=== PATIENT | male | born 1930 | race Caucasian/White ===

== ENCOUNTER 2017-04-04 16:02 | Inpatient (IN) | payer MEDICARE ==
[~2017-04-04] VITALS: Ht 162.6 cm; Wt 56.0 kg
[~2017-04-04 16:02] MED LIST: ASPIRIN CHEW81 MG PO; FAMOTIDINE20 MG PO; FERROUS SULFAT324 MG PO; FUROSEMIDE40 MG PO; GLIMEPIRIDE2 MG PO; KEFLEX500 MG PO; LANTUS 3ML100 UNITS/ SC; MAGNESIUM OXID400 MG PO; PLAVIX75 MG PO; POTASSIUM CHLO10 ME1 PO; ZOCOR20 MG PO
--- OUTSIDE RECORDS SUMMARY | 2017-04-04 16:05 | XMS REPORT ---
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 Allergies, Adverse Reactions, Alerts This patient has no known allergies or adverse reactions. Medications This patient has no known medications. Results Test Description Test Time Test Comments Text Results Atomic Results Result Comments CHEST SINGLE (PORTABLE) [place] [address] Patient Name: LIAT TRAN MR #: [id number] : 1930 Age/Sex: 86/M Req #: [id number] [facility] Physician: MELISSA ARENAS MD Ordered by: MELISSA ARENAS MD Report #: [id number] Location: [facility] Room/Bed: [place] [address] Procedure: [id number] DX/CHEST SINGLE (PORTABLE) Exam Date: 01/19/17 Exam Time: 0500 REPORT STATUS: Signed EXAM: CHEST SINGLE (PORTABLE), AP 1 view DATE: 01/19/2017 6:00 AM Time stamp on exam: 0520 hours INDICATION: Shortness of breath, pneumonia, pleural effusions COMPARISON: AP view of the chest January 16, 2017 at 1850 hours FINDINGS: LINES/TUBES: None LUNGS: Bibasilar atelectasis. PLEURA: Bilateral pleural effusions. HEART AND MEDIASTINUM: Cardiomegaly , mediastinal clips and median sternotomy wires. BONES AND SOFT TISSUES: No acute findings. IMPRESSION: No interval change. Next Cardiomegaly, vascular congestion and bilateral pleural effusions. Signed by: Dr. Britta Patterson M.D. on 01/19/2017 6:47 AM Dictated By: BRITTA PATTERSON MD 6 Transcribed By: JAKE on 01/19/17646 COPY TO: MELISSA ARENAS MD CHEST SINGLE (PORTABLE) [place] [address] Patient Name: LIAT TRAN MR #: [id number] : 1930 Age/Sex: 86/M Req #: [id number] Adm Physician: Ordered by: MARIO SMITH Report #: [id number] Location: ER Room/Bed: _ Procedure: [id number] DX/CHEST SINGLE (PORTABLE) Exam Date: 01/16/17 Exam Time: 1904 REPORT STATUS: Signed EXAMINATION : CHEST SINGLE (PORTABLE) 01/16/2017 6:53 PM COMPARISON: None INDICATION: Pneumonia DISCUSSION: LINES: None. LUNGS: Low lung volumes with bibasilar atelectasis. There is pulmonary vascular congestion. PLEURA: Bilateral pleural effusions, right greater than left. HEART AND MEDIASTINUM: The heart is mildly enlarged. There are extensive postsurgical changes to the mediastinum. BONES AND SOFT TISSUES: Median sternotomy wires are intact.. The soft tissues are normal. IMPRESSION: Cardiomegaly with pulmonary vascular congestion and bilateral pleural effusions. Vaibhav Fuentes MD Signed by: Dr. Vaibhav Fuentes M.D. on 01/16/2017 7:21 PM Dictated By: VAIBHAV FUENTES MD 20 Transcribed By: JAKE on 01/16/171920 COPY TO: MARIO SMITH
--- OUTSIDE RECORDS SUMMARY | 2017-04-04 16:05 | XMS REPORT | Clinical Summary ---
Author Author [facility] Organization [facility] Address Unknown Phone Unavailable Care Team Providers Care Business Intelligence Consultant Name Role Phone Asked, Pcp PCP Unavailable Allergies No Known Allergies Current Medications Prescription Sig. Disp. Refills Start End Date Status Date furosemide (LASIX) 20 mg Take by mouth. Unknown Active tablet dose insulin ASPART (NovoLOG) Inject under the skin 3 Active 100 unit/mL injection (three) times a day before meals. Unknown dose atorvastatin (LIPITOR) 10 Take 10 mg by mouth Active MG tablet nightly. cephalexin (KEFLEX) 500 Take 500 mg by mouth 3 Active MG capsule (three) times a day. famotidine (PEPCID) 20 MG Take 20 mg by mouth Active tablet daily. ferrous sulfate 325 (65 Take 325 mg by mouth Active FE) MG tablet daily with breakfast. glipiZIDE (GLUCOTROL) 5 Take 7.5 mg by mouth Active MG tablet daily before breakfast. insulin lispro (HumaLOG) Inject under the skin 3 Active 100 unit/mL injection (three) times a day before meals. Low dose sliding scale lidocaine (LIDODERM) 5 % Place 1 patch on the skin Active daily. Remove & Discard patch within 12 hours or as directed by magnesium oxide (MAG-OX) Take 800 mg by mouth 2 Active 400 mg tablet (two) times a day. tamsulosin (FLOMAX) 0.4 Take 0.4 mg by mouth Active mg capsule,extended daily. release 24hr acetaminophen (TYLENOL) Take 650 mg by mouth Active 325 MG tablet every 6 (six) hours as needed for fever. HEPARIN SODIUM,PORCINE Infuse 5,000 Units into a 03/01/19 Discontin (HEPARIN, PORCINE,) 1,000 venous catheter every 8 18 ued unit/mL injection (eight) hours. dexamethasone (DECADRON) Take 1 tablet (4 mg 14 tablet 0 03/01/19 4 MG tablet total) by mouth 2 (two) 18 18 times a day with meals for 7 days. Active Problems Problem Noted Date Myelopathy 02/27/2017 Debility 02/22/2017 Encounters Date Type Specialty Care Team Description 03/03/2017 Patient Quality Azael Rubio, PharmD Outreach 02/27/2017 [facility] General Internal Medicine Maty Dumont Myelopathy (Primary Dx) - Encounter MD Riley 03/01/2017 Jonathan Hobbs MD Tang, Hsiao Chiang, MD 02/27/2017 Procedure Pass General Internal Medicine 02/24/2017 Social Work Rehabilitation Marita Winslow 02/22/2017 [facility] Rehabilitation Julio Vivar MD - Encounter 02/27/2017 after 04/03/2016 Social History Tobacco Use Types Packs/Day Years Used Date Never Smoker Smokeless Tobacco: Never Used Alcohol Use Drinks/Week oz/Week Comments No Sex Assigned at Date Recorded Not on file Last Filed Vital Signs Vital Sign Reading Time Taken Blood Pressure 129/59 03/01/2017 12:57 PM [employer] Pulse 98 03/01/2017 12:57 PM [employer] Temperature 36.5 C (97.7 F) 03/01/2017 12:57 PM [employer] Respiratory Rate 16 03/01/2017 12:57 PM [employer] Oxygen Saturation 100% 03/01/2017 12:57 PM [employer] Inhaled Oxygen - - Concentration Weight 68 kg (150 lb) 02/27/2017 12:44 PM [employer] Height 162.6 cm (5' 4") 02/27/2017 5:46 PM [employer] Body Mass Index 25.75 02/27/2017 12:44 PM [employer] Plan of Treatment Health Maintenance Due Date Last Done Comments ZOSTER VACCINE 1988 PNEUMOCOCCAL 1993 POLYSACCHARIDE VACCINE AGE 65 AND OVER PNEUMOCOCCAL-13 1993 INFLUENZA VACCINE 09/13/2016 Results * POC glucose (03/01/2017 12:02 PM) Only the most recent of 31 results within the time period is included. Component Value Ref Range POC glucose 272 (H) 65 - 100 mg/dL Comment: Meter ID: [id number] Pulverizer Feeder: Brendan Foote Specimen Performing Laboratory [facility] [address] [place] [address] * Hemoglobin A1c (03/01/2017 6:15 AM) Component Value Ref Range Hemoglobin A1C 7.0 (H) 4.0 - 6.0 % Comment: Less than 6% - Goal of therapy for Type II Diabetes Less than 7%- Goal of therapy for Type I Diabetes Less than 8%- Acceptable control for Type I or Type II Diabetes Greater than 8%- Unacceptable control; action indicated. (A [id number]) Specimen Performing Laboratory Blood [facility] [address] [place] [address] * FL Modified Barium Swallow (02/28/2017 11:19 AM) Specimen Performing Laboratory [facility] [address] [place] [address] Narrative PROCEDURE:FL MODIFIED BARIUM SWALLOW CLINICAL HISTORY:swallow test COMPARISON:None. TECHNIQUE: Procedure was performed in conjunction with the speech therapist. The patient was given thin barium, nectar, honey, puree, and cracker coated barium consistencies orally. A total kV of 66, mA of 2.4, and fluoroscopic time of 1.2 minutes was utilized for this procedure. The DAP (dose absorbed product) is: 0.32mGy-cm^2. The total number of fluoroscopic spot images: A single image of the neck in the lateral projection. FINDINGS: The patient demonstrated normal oral to pharyngeal transit. Hernandez, nonsilent laryngeal penetration and aspiration was encountered with thin liquids. No laryngeal penetration or aspiration was encountered with the remaining oral boluses applied. No vallecular pooling is seen. IMPRESSION: Abnormal study. High-Risk of nonsilent aspiration with thin liquids. [id number] . Procedure Note Interface, Radiology Results Incoming - 02/28/2017 11:34 AM [employer] PROCEDURE: FL MODIFIED BARIUM SWALLOW CLINICAL HISTORY: swallow test COMPARISON: None. TECHNIQUE: Procedure was performed in conjunction with the speech therapist. The patient was given thin barium, nectar, honey, puree, and cracker coated barium consistencies orally. A total kV of 66, mA of 2.4, and fluoroscopic time of 1.2 minutes was utilized for this procedure. The DAP (dose absorbed product) is: 0.32 mGy-cm^2. The total number of fluoroscopic spot images: A single image of the neck in the lateral projection. FINDINGS: The patient demonstrated normal oral to pharyngeal transit. Hernandez, nonsilent laryngeal penetration and aspiration was encountered with thin liquids. No laryngeal penetration or aspiration was encountered with the remaining oral boluses applied. No vallecular pooling is seen. IMPRESSION: Abnormal study. High-Risk of nonsilent aspiration with thin liquids. [id number] . * Urinalysis screen and microscopy, with reflex to culture (02/27/2017 5:24 PM) Component Value Ref Range Specimen site Clean catch Color, UA Yellow Appearance, UA Clear Specific gravity, UA 1.011 1.001 - 1.035 pH, UA 7.0 5.0 - 8.5 Protein, UA 2+ (A) Negative Glucose, UA 2+ (A) Negative Ketones, UA Trace (A) Negative Bilirubin, UA Negative Negative Blood, UA Negative Negative Nitrite, UA Negative Negative Urobilinogen, UA Negative <2.0 Leukocyte esterase, UA Negative Negative WBC, UA 1 0 - 1 /HPF RBC, UA 2 0 - 1 /HPF Bacteria, UA None seen None seen Yeast, UA None seen Yeast with pseudohyphae, None seen UA Hyaline casts, UA 4 /LPF Specimen Performing Laboratory Urine [facility] [address] [place] [address] * Urine culture (02/27/2017 5:24 PM) Component Value Ref Range Urine culture SEE COMMENTComment: Bacteriuria screen negative. Specimen Performing Laboratory [facility] [place] [address] [place] [address] * MRI Thoracic Spine Wo Contrast (02/27/2017 5:03 PM) Specimen Performing Laboratory [facility] [address] [place] [address] Narrative EXAMINATION:MRI THORACIC SPINE WO CONTRAST COMPARISON:Thoracic spine CT same day. CLINICAL HISTORY:myelopathy FINDINGS: As noted on the CT others a horizontal fracture through T10 extending into the posterior elements. This also fracture extending into the anterior right aspect of T9. There is surrounding abnormal soft tissue possibly representing hematoma. As noted on the CT there is a bone fragment posteriorly at T10 which in combination with slight retropulsion results in spinal stenosis and cord compression. There is associated increased signal intensity within the cord on the T2 and inversion recovery weighted sequences compatible with edema and/or gliosis. Also as noted on the CT is ankylosing spondylitis. There is a large loculated right pleural effusion. IMPRESSION: Ankylosing spondylitis with a complex horizontal fracture through T10 including the posterior elements. A bone fragment posteriorly results in fairly severe spinal stenosis and associated cord compression. Abnormal signal intensity within the cord compatible with gliosis and/or edema. [facility]-[id number] Procedure Note Interface, Radiology Results Incoming 02/27/2017 5:18 PM [employer] EXAMINATION: MRI THORACIC SPINE WO CONTRAST COMPARISON: Thoracic spine CT same day. CLINICAL HISTORY: myelopathy FINDINGS: As noted on the CT others a horizontal fracture through T10 extending into the posterior elements. This also fracture extending into the anterior right aspect of T9. There is surrounding abnormal soft tissue possibly representing hematoma. As noted on the CT there is a bone fragment posteriorly at T10 which in combination with slight retropulsion results in spinal stenosis and cord compression. There is associated increased signal intensity within the cord on the T2 and inversion recovery weighted sequences compatible with edema and/or gliosis. Also as noted on the CT is ankylosing spondylitis. There is a large loculated right pleural effusion. IMPRESSION: Ankylosing spondylitis with a complex horizontal fracture through T10 including the posterior elements. A bone fragment posteriorly results in fairly severe spinal stenosis and associated cord compression. Abnormal signal intensity within the cord compatible with gliosis and/or edema. [facility]-[id number] * XR Chest 1 Vw Portable (02/27/2017 3:17 PM) Specimen Performing Laboratory [address] [address] Narrative EXAMINATION:XR CHEST 1 VW PORTABLE CLINICAL HISTORY:Cough COMPARISON:None IMPRESSION: Right greater than left patchy basilar infiltrates may be pneumonia. Pulmonary edema is also a consideration. Recommend radiographic follow-up. Small right pleural effusion. The heart is enlarged with diffuse congestive changes. There is evidence of prior CABG. [facility]-[id number] Procedure Note Interface, Radiology Results Incoming - 02/27/2017 3:44 PM [employer] EXAMINATION: XR CHEST 1 VW PORTABLE CLINICAL HISTORY: Cough COMPARISON: None IMPRESSION: Right greater than left patchy basilar infiltrates may be pneumonia. Pulmonary edema is also a consideration. Recommend radiographic follow-up. Small right pleural effusion. The heart is enlarged with diffuse congestive changes. There is evidence of prior CABG. [facility]-[id number] * CT Thoracic Spine Wo Contrast (02/27/2017 2:23 PM) Specimen Performing Laboratory [facility] [address] [place] [address] Narrative EXAMINATION:CT THORACIC SPINE WO CONTRAST COMPARISON:None CLINICAL HISTORY:fall TECHNIQUE: Coronal and sagittal reformations were accomplished. Up to date CT equipment and radiation dose reduction techniques were utilized. FINDINGS: The patient has ankylosing spondylitis with the fusion of the anterior longitudinal and posterior longitudinal ligaments and of the spinous processes posteriorly. There is a horizontal fracture through the upper aspect of the T10 vertebral body which also extends through the posterior elements. There is also extension of the fracture upward through the anterior right lower corner of T9. There is there is narrowing of the spinal canal posteriorly from a fragment of bone. Mild cord compression cannot be absolutely excluded. There is increased soft tissue anterior to the fractures probably representing hematoma. There is a fracture of the T10 spinous process. IMPRESSION: Ankylosing spondylitis with horizontal fracture through T10 and partial fracture of T9. The fracture through T10 extends through the posterior elements making this an unstable fracture. Associated spinal stenosis. Note: MATY DUMONT was informed of these findings on 02/27/2017 2:59 PM and acknowledged understanding of the findings. [facility]-[id number] Procedure Note Interface, Radiology Results Incoming - 02/27/2017 3:03 PM [employer] EXAMINATION: CT THORACIC SPINE WO CONTRAST COMPARISON: None CLINICAL HISTORY: fall TECHNIQUE: Coronal and sagittal reformations were accomplished. Up to date CT equipment and radiation dose reduction techniques were utilized. FINDINGS: The patient has ankylosing spondylitis with the fusion of the anterior longitudinal and posterior longitudinal ligaments and of the spinous processes posteriorly. There is a horizontal fracture through the upper aspect of the T10 vertebral body which also extends through the posterior elements. There is also extension of the fracture upward through the anterior right lower corner of T9. There is there is narrowing of the spinal canal posteriorly from a fragment of bone. Mild cord compression cannot be absolutely excluded. There is increased soft tissue anterior to the fractures probably representing hematoma. There is a fracture of the T10 spinous process. IMPRESSION: Ankylosing spondylitis with horizontal fracture through T10 and partial fracture of T9. The fracture through T10 extends through the posterior elements making this an unstable fracture. Associated spinal stenosis. Note: MATY DUMONT was informed of these findings on 02/27/2017 2:59 PM and acknowledged understanding of the findings. [id number] * CT Lumbar Spine Wo Contrast (02/27/2017 2:17 PM) Specimen Performing Laboratory [facility] [address] [place] [address] Narrative EXAMINATION: CT LUMBAR SPINE WO CONTRAST CLINICAL HISTORY: fall COMPARISON:None TECHNIQUE: Axial noncontrast enhanced images of lumbar spine was performed with coronal sagittal reconstruction algorithms. CT imaging was performed with iterative reconstruction technique and/or automated exposure control to reduce radiation dose. FINDINGS: Chronic appearing compression deformity superior endplate of L4. No subluxation. Straightening of normal lumbar lordosis. Flowing marginal and anterior osteophytes of the lumbar spine, suggestive of seronegative spondyloarthropathy. Limited evaluation the visualized retroperitoneal soft tissues demonstrates a right pleural effusion with suspected pleural thickening. Small hiatal hernia. Calcified atherosclerosis abdominal aorta. Axial images through the disc spaces demonstrate the following: L1-L2: Moderate right neural foraminal stenosis secondary to endplate osteophytes. No significant spinal canal or left neural foraminal stenosis. L2-L3: Small disc bulge without significant spinal canal or neural foraminal stenosis. L3-L4: Moderate right and mild left neural foraminal stenosis secondary to uncovertebral facet osteophytes. Small endplate osteophytes indent the ventral thecal sac and contribute to mild subarticular zone and spinal canal stenosis. L4-L5: Severe left and and [id number] right neural foraminal stenosis secondary to endplate and facet osteophytes. No significant spinal canal stenosis. L5-S1: Mild to moderate bilateral facet arthropathy contributes to mild right neural foraminal stenosis. No significant spinal canal or left neural foraminal stenosis. IMPRESSION: Mild chronic appearing compression deformity of the superior endplate of L4. Flowing vertebral osteophytes, suggestive of seronegative spondyloarthropathy. Multilevel degenerative changes of the lumbar spine, most notably at L3-4 and L4 -5 as detailed above. Small right pleural effusion with suspected pleural thickening. Dedicated CT chest can be performed for further assessment. [facility]-[id number] Procedure Note Interface, Radiology Results Incoming - 02/27/2017 2:35 PM [employer] EXAMINATION: CT LUMBAR SPINE WO CONTRAST CLINICAL HISTORY: fall COMPARISON: None TECHNIQUE: Axial noncontrast enhanced images of lumbar spine was performed with coronal sagittal reconstruction algorithms. CT imaging was performed with iterative reconstruction technique and/or automated exposure control to reduce radiation dose. FINDINGS: Chronic appearing compression deformity superior endplate of L4. No subluxation. Straightening of normal lumbar lordosis. Flowing marginal and anterior osteophytes of the lumbar spine, suggestive of seronegative spondyloarthropathy. Limited evaluation the visualized retroperitoneal soft tissues demonstrates a right pleural effusion with suspected pleural thickening. Small hiatal hernia. Calcified atherosclerosis abdominal aorta. Axial images through the disc spaces demonstrate the following: L1-L2: Moderate right neural foraminal stenosis secondary to endplate osteophytes. No significant spinal canal or left neural foraminal stenosis. L2-L3: Small disc bulge without significant spinal canal or neural foraminal stenosis. L3-L4: Moderate right and mild left neural foraminal stenosis secondary to uncovertebral facet osteophytes. Small endplate osteophytes indent the ventral thecal sac and contribute to mild subarticular zone and spinal canal stenosis. L4-L5: Severe left and and [id number] right neural foraminal stenosis secondary to endplate and facet osteophytes. No significant spinal canal stenosis. L5-S1: Mild to moderate bilateral facet arthropathy contributes to mild right neural foraminal stenosis. No significant spinal canal or left neural foraminal stenosis. IMPRESSION: Mild chronic appearing compression deformity of the superior endplate of L4. Flowing vertebral osteophytes, suggestive of seronegative spondyloarthropathy. Multilevel degenerative changes of the lumbar spine, most notably at L3-4 and L4 -5 as detailed above. Small right pleural effusion with suspected pleural thickening. Dedicated CT chest can be performed for further assessment. [id number] * Estimated GFR (02/27/2017 1:29 PM) Only the most recent of 3 results within the time period is included. Component Value Ref Range GFR Non Af Amer 57 (A) mL/min/1.73 m2 GFR Af Amer 69 mL/min/1.73 m2 Comment: Chronic kidney disease: <60 mL/min/1.73m2 Kidney failure: <15 mL/min/1.73m2 The estimated GFR is calculated from the IDMS-traceable Modification of Diet in Renal Disease Equation. The accuracy of the calculation is poor when the creatinine is normal. Calculated values >90 mL/min/1.73m2 are not reported. This equation has not been validated in children (<18 years), women, the elderly (>70 years), or ethnic groups other than Caucasians and Americans. Specimen Performing Laboratory Plasma specimen [facility] [address] [place] [address] * CBC with platelet and differential (02/27/2017 1:29 PM) Only the most recent of 3 results within the time period is included. Component Value Ref Range WBC 9.3 4.2 - 11.0 k/uL RBC 2.86 (L) 4.04 - 5.86 m/uL HGB 7.9 (L) 13.0 - 17.3 g/dL HCT 25.4 (L) 34.0 - 45.0 % MCV 88.8 80.0 - 98.0 fL MCH 27.6 27.0 - 34.0 pg MCHC 31.1 (L) 31.5 - 36.5 g/dL RDW - SD 47.0 37.0 - 51.0 fL MPV 9.1 7.4 - 10.4 fL Platelet count 430 (H) 150 - 400 k/uL Nucleated RBC 0.00 /100 WBC Neutrophils 88.7 (H) 36.0 - 66.0 % Lymphocytes 3.0 (L) 24.0 - 44.0 % Monocytes 7.0 (H) 0.0 - 6.0 % Eosinophils 0.0 0.0 - 6.0 % Basophils 0.2 0.0 - 1.2 % Immature granulocytes 1.1 (H) 0.0 - 1.0 % Specimen Performing Laboratory Blood [facility] [address] [place] [address] * Basic metabolic panel (02/27/2017 1:29 PM) Only the most recent of 3 results within the time period is included. Component Value Ref Range Sodium 130 (L) 135 - 150 mEq/L Potassium 4.1 3.5 - 5.0 mEq/L Chloride 90 (L) 100 - 109 mEq/L CO2 32 24 - 32 mmol/L Anion gap 8 7 - 15 mEq/L Comment: Starting from May , anion gap calculation no longer incorporates potassium. Please note the change. BUN 17 7 - 18 mg/dL Creatinine 1.2 0.8 - 1.5 mg/dL Glucose 207 (H) 65 - 100 mg/dL Calcium 8.7 8.6 - 10.7 mg/dL Specimen Performing Laboratory Plasma specimen [facility] [address] [place] [address] * T3, free (02/25/2017 1:16 PM) Component Value Ref Range T3, free 1.73 (L) 2.18 - 3.98 pmol/L Specimen Performing Laboratory Plasma specimen [facility] [address] [place] [address] * Thyroid stimulating hormone (02/25/2017 1:16 PM) Component Value Ref Range TSH 2.80 0.38 - 4.82 uIU/mL Specimen Performing Laboratory Plasma specimen [facility] [place] [address] [place] [address] * T4, free (02/25/2017 1:16 PM) Component Value Ref Range T4, free 1.16 0.70 - 1.61 ng/dL Specimen Performing Laboratory Plasma specimen [facility] [place] [address] [place] [address] * Total iron binding capacity (02/25/2017 4:46 AM) Component Value Ref Range Iron level 34 (L) 76 - 198 ug/dL Iron binding capacity 174 (L) 271 - 474 ug/dL % Saturation 19.5 (L) 20.0 - 40.0 % Specimen Performing Laboratory Blood [facility] [address] [place] [address] * Ferritin level (02/25/2017 4:46 AM) Component Value Ref Range Ferritin level 1,382 (H) 18 - 158 ng/mL Specimen Performing Laboratory Serum [facility] AND [facility] [address] [place], [place] [address] [place] [address] * Vitamin B12 level (02/25/2017 4:46 AM) Component Value Ref Range Vitamin B12 131 (L) 231 - 931 pg/mL Comment: Significant overlap exists between normal and deficiency states. However, most patients with deficiencies will have Serum B12 <200 pg/mL. Specimen Performing Laboratory Serum [facility] [place] [address] [place] [address] * Hepatic function panel (02/25/2017 4:46 AM) Component Value Ref Range Albumin 2.3 (L) 3.2 - 5.0 g/dL Total bilirubin 0.5 0.2 - 1.2 mg/dL Bilirubin direct 0.1 0.0 - 0.4 mg/dL Alkaline phosphatase 168 (H) 30 - 120 U/L Protein 6.7 6.3 - 8.2 g/dL ALT 14 (L) 30 - 65 U/L AST 20 15 - 37 U/L Specimen Performing Laboratory Plasma specimen [facility] [address] [place] [address] * Manual differential (02/23/2017 5:53 AM) Component Value Ref Range Manual differential PERFORMED Neutrophils 76.0 (H) 36.0 - 66.0 % Lymphocytes 10.0 (L) 24.0 - 44.0 % Monocytes 6.0 0.0 - 6.0 % Eosinophils 1.0 0.0 - 6.0 % Basophils 1.0 0.0 - 1.2 % Metamyelocytes 0 0 - 1 % Myelocytes 6 (H) 0 - 1 % Promyelocytes 0 0 - 1 % Platelet slide review Inez adequate Anisocytosis slight Polychromasia slight Specimen Performing Laboratory [facility] [address] [place] [address] after 04/03/2016 Insurance Payer Benefit Subscriber ID Type Phone Address Plan / Group [employer] A[employer] xxxxxxxxx [facility] MEDICARE COMPLETE [facility]
--- NOTE | 2017-04-04 18:37 | Diagnostic Imaging Report ---
PROCEDURE: A single AP view of the chest. COMPARISON: None. INDICATIONS: CONFUSION, LOW BLOOD PRESSURE, WEAKNESS FINDINGS: Lines/tubes: None. Lungs and pleura: Lungs are well-inflated. Hazy opacity involving the right mid and lower lung likely represents pleural effusion. Stable left-sided pleural effusion. Bibasilar atelectasis. Heart and mediastinum: Cardiac silhouette is stable. Stable mediastinal clips. Pulmonary vasculature is normal.. Bones: No acute bony abnormality. IMPRESSION: 1. right pleural effusion, likely layering. Stable left pleural effusion. Bibasilar atelectasis. Ankush Mercer M.D. Dictated by: Ankush Mercer M.D. on 04/04/2017 at 18:36 Electronically approved by: Ankush Mercer M.D. on 04/04/2017 at 18:36
--- NOTE | 2017-04-04 18:50 | Diagnostic Imaging Report ---
Examination: CT head without contrast Clinical Indication: Confusion. Altered mental status. Technique: Transaxial noncontrast images from the skull base through the vertex were obtained. Sagittal and coronal reformatted images were done. Comparison: None. Findings: Scalp: No abnormalities. Bones: Intact. No fractures. No blastic or lytic lesions. Brain sulci: Mild volume loss for patient's age. Ventricles: No hydrocephalus. . Extra-axial space: No abnormalities. Parenchyma: There are mild confluent areas of low-attenuation within subcortical and periventricular and pontine white matter, nonspecific, but could represent microvascular ischemic disease. No masses, hemorrhage, or acute or chronic cortical based vascular insults. There is a chronic lacunar infarct in the left subinsular cortex. Suprasellar region: No abnormalities. Craniocervical junction: The foramen magnum is patent. No Chiari one malformation. Incidental findings: Retention cyst in the right maxillary sinus. Atherosclerotic calcification of the cavernous and supraclinoid internal carotid arteries. Impression: 1. No acute intracranial abnormality 2. Mild supratentorial and infratentorial chronic microvascular ischemic change. 3. Mild volume loss for age. 4. Chronic lacunar infarct, as above. Signed by: Dr. Karen Deleon M.D. on 04/04/2017 6:46 PM
[2017-04-04 22:18] LABS: COLOR,URINE YELLOW (YELLOW); KETONES,URINE NEGATIVE (NEGATIVE); LEUKOCYTE ESTERASE ,URINE 2+ (NEGATIVE); NITRITE,URINE NEGATIVE (NEGATIVE); URINE UROBILINOGEN 0.2 mg/dL (0.2 - 1)
[2017-04-04 22:19] LABS: BASOPHILS # (AUTO) 0.1 (0.0-0.1); BASOPHILS % 0.4 % (0.0-1.0); EOSINOPHILS % 0.3 % (0.0-6.0); HEMATOCRIT 27.3 % (38.2-49.6); HEMOGLOBIN 8.6 g/dL (14.0-18.0); LYMPHOCYTES # (AUTO) 0.5 (1.0-3.2); MEAN CORPUSCULAR HGB CONC 31.5 g/dL (31-35); MEAN CORPUSCULAR VOLUME 88.9 fL (81-99); MONOCYTES # (AUTO) 0.6 (0.2-0.8); MONOCYTES % 5.3 % (4.4-11.3); NEUTROPHILS # (AUTO) 10.3 (2.1-6.9); PLATELET COUNT 474 x10e3/uL (140-360); RED BLOOD COUNT 3.07 x10e6/uL (4.3-5.7); RED CELL DISTRIBUTION WIDTH 14.4 % (11.7-14.4)
[2017-04-04 22:20] LABS: BILIRUBIN,URINE 1+ (NEGATIVE); CLARITY,URINE SL CLOUDY (CLEAR); PROTEIN,URINE DIPSTICK 2+ (NEGATIVE)
[2017-04-04 22:30] LABS: INR 1.05; PROTHROMBIN TIME 12.9 seconds (11.9-14.5)
[2017-04-04 22:31] LABS: PARTIAL THROMBOPLASTIN TIME 32.1 seconds (23.8-35.5)
[2017-04-04 22:38] LABS: ALBUMIN 3.4 g/dL (3.5-5.0); ALBUMIN/GLOBULIN RATIO 0.8 (0.8-2.0); ANION GAP 19.5 mmol/L (8-16); CALCIUM 9.9 mg/dL (8.4-10.2); CREATININE, SERUM 1.4 mg/dL (0.72-1.25)
[2017-04-04 22:39] LABS: POTASSIUM 5.5 mmol/L (3.5-5.1)
[2017-04-04 22:42] LABS: BACTERIA,URINE MANY /HPF; EPITHELIAL CELLS,URINE RARE /LPF; WBC,URINE (MAN) >50 /HPF (0-5)
[2017-04-04 22:44] LABS: CREATINE KINASE MB 2.9 ng/mL (0-5.0)
[2017-04-04] MEDS ORDERED: AZITHROMYCIN 500MG/NS 250 ML 250 ML ONE (23:58)
[2017-04-05] MEDS: AZITHROMYCIN 500MG/NS 250 ML 250 ML IV SCH ×2 (00:09→09:00)
[2017-04-05] MEDS: PIPER-TAZ 3.375 GM 50 ML IV SCH ×4 (00:09→17:58)
[2017-04-05] MEDS ORDERED: ONDANSETRON HCL INJ 2 MG/ML VIAL IV PRN (01:15)
[2017-04-05] MEDS ORDERED: FUROSEMIDE INJ 10 MG/ML 4 ML VIAL IV ONE (01:15)
[2017-04-05] MEDS ORDERED: DEXTROSE 50% SYRINGE 50 ML IV PRN (01:15)
[2017-04-05] MEDS ORDERED: FAMOTIDINE 20 MG/2 ML VIAL IV SCH (01:15)
--- OUTSIDE RECORDS SUMMARY | 2017-04-05 02:19 | XMS REPORT | Clinical Summary ---
Author Author [facility] [employer] [facility] [employer] Address Unknown Phone Unavailable Care Team Providers Care E Learning Designer Name Role Phone Asked, Pcp PCP Unavailable [...] Patient Quality Azael Rubio, PharmD Outreach 02/27/2017 [facility] General Internal Medicine Maty Dumont Myelopathy (Primary Dx) - Encounter MD Riley 03/01/2017 Jonathan Hobbs MD Tang, Hsiao Chiang, MD 02/27/2017 Procedure Pass General Internal Medicine 02/24/2017 Social Work Rehabilitation Marita Winslow 02/22/2017 [facility] Rehabilitation Julio Vivar MD - Encounter 02/27/2017 after 04/04/2016 Social History Tobacco Use Types Packs/Day Years Used Date Never Smoker Smokeless Tobacco: Never Used Alcohol Use Drinks/Week oz/Week Comments No Sex Assigned at Date Recorded Not on file Last Filed Vital Signs Vital Sign Reading Time Taken Blood Pressure 129/59 03/01/2017 12:57 PM [employer] Pulse 98 03/01/2017 12:57 PM [employer] Temperature 36.5 C (97.7 F) 03/01/2017 12:57 PM [employer] Respiratory Rate 16 03/01/2017 12:57 PM [employer] Oxygen Saturation 100% 03/01/2017 12:57 PM [employer] Inhaled Oxygen - - Concentration Weight 68 kg (150 lb) 02/27/2017 12:44 PM [employer] Height 162.6 cm (5' 4") 02/27/2017 5:46 PM [employer] Body Mass Index 25.75 02/27/2017 12:44 PM [employer] Plan of Treatment Health Maintenance Due Date Last Done Comments ZOSTER VACCINE 1988 PNEUMOCOCCAL 1993 POLYSACCHARIDE VACCINE AGE 65 AND OVER PNEUMOCOCCAL-13 1993 INFLUENZA VACCINE 09/13/2016 Results * POC glucose (03/01/2017 12:02 PM) Only the most recent of 31 results within the time period is included. Component Value Ref Range POC glucose 272 (H) 65 - 100 mg/dL Comment: Meter ID: [id number] Data Analyst Etl Developer: Brendan Foote Specimen Performing Laboratory [facility] DEPARTMENT OF PATHOLOGY AND GENOMIC MEDICINE [address] [place] [address] * Hemoglobin A1c (03/01/2017 6:15 AM) Component [...] indicated. (A [id number]) Specimen Performing Laboratory Blood [facility] DEPARTMENT OF PATHOLOGY AND GENOMIC MEDICINE [address] [place] [address] * FL Modified Barium Swallow (02/28/2017 11:19 AM) Specimen Performing Laboratory [facility] [address] [place] [address] Narrative PROCEDURE:FL MODIFIED BARIUM SWALLOW CLINICAL HISTORY:swallow [...] High-Risk of nonsilent aspiration with thin liquids. [facility]-[id number] . Procedure Note Interface, Radiology Results Incoming - 02/28/2017 11:34 AM [employer] PROCEDURE: FL MODIFIED BARIUM SWALLOW CLINICAL HISTORY: [...] High-Risk of nonsilent aspiration with thin liquids. [facility]-[id number] . * Urinalysis screen and microscopy, with [...] UA 4 /LPF Specimen Performing Laboratory Urine [facility] DEPARTMENT OF PATHOLOGY AND GENOMIC MEDICINE [address] [place] [address] * Urine culture (02/27/2017 5:24 PM) Component Value Ref Range Urine culture SEE COMMENTComment: Bacteriuria screen negative. Specimen Performing Laboratory [facility] DEPARTMENT OF PATHOLOGY AND GENOMIC MEDICINE [facility] [address] [place] [address] * MRI Thoracic Spine Wo Contrast (02/27/2017 5:03 PM) Specimen Performing Laboratory [facility] [address] [place] [address] Narrative EXAMINATION:MRI THORACIC SPINE WO CONTRAST COMPARISON:Thoracic [...] the cord compatible with gliosis and/or edema. [facility]-[id number] Procedure Note Interface, Radiology Results Incoming 02/27/2017 5:18 PM [employer] EXAMINATION: MRI THORACIC SPINE WO CONTRAST COMPARISON: [...] the cord compatible with gliosis and/or edema. [facility]-[id number] * XR Chest 1 Vw Portable (02/27/2017 3:17 PM) Specimen Performing Laboratory [address] [address] Narrative EXAMINATION:XR CHEST 1 VW PORTABLE CLINICAL HISTORY:Cough COMPARISON:None IMPRESSION: Right greater than left patchy basilar infiltrates may be pneumonia. Pulmonary edema is also a consideration. Recommend radiographic follow-up. Small right pleural effusion. The heart is enlarged with diffuse congestive changes. There is evidence of prior CABG. [facility]-[id number] Procedure Note Interface, Radiology Results Incoming - 02/27/2017 3:44 PM [employer] EXAMINATION: XR CHEST 1 VW PORTABLE CLINICAL HISTORY: Cough COMPARISON: None IMPRESSION: Right greater than left patchy basilar infiltrates may be pneumonia. Pulmonary edema is also a consideration. Recommend radiographic follow-up. Small right pleural effusion. The heart is enlarged with diffuse congestive changes. There is evidence of prior CABG. [facility]-[id number] * CT Thoracic Spine Wo Contrast (02/27/2017 2:23 PM) Specimen Performing Laboratory [facility] [address] [place] [address] Narrative EXAMINATION:CT THORACIC SPINE WO CONTRAST COMPARISON:None [...] PM and acknowledged understanding of the findings. [facility]-[id number] Procedure Note Interface, Radiology Results Incoming - 02/27/2017 3:03 PM [employer] EXAMINATION: CT THORACIC SPINE WO CONTRAST COMPARISON: [...] PM and acknowledged understanding of the findings. [facility]-[id number] * CT Lumbar Spine Wo Contrast (02/27/2017 2:17 PM) Specimen Performing Laboratory [facility] [address] [place] [address] Narrative EXAMINATION: CT LUMBAR SPINE WO CONTRAST [...] canal stenosis. L4-L5: Severe left and and [id number] right neural foraminal stenosis secondary to endplate [...] chest can be performed for further assessment. [facility]-[id number] Procedure Note Interface, Radiology Results Incoming - 02/27/2017 2:35 PM [employer] EXAMINATION: CT LUMBAR SPINE WO CONTRAST CLINICAL [...] canal stenosis. L4-L5: Severe left and and [id number] right neural foraminal stenosis secondary to endplate [...] chest can be performed for further assessment. [facility]-[id number] * Estimated GFR (02/27/2017 1:29 PM) Only [...] and Americans. Specimen Performing Laboratory Plasma specimen [facility] DEPARTMENT OF PATHOLOGY AND GENOMIC MEDICINE [address] [place] [address] * CBC with platelet and differential (02/27/2017 [...] - 1.0 % Specimen Performing Laboratory Blood [facility] DEPARTMENT OF PATHOLOGY AND GENOMIC MEDICINE [address] [place] [address] * Basic metabolic panel (02/27/2017 1:29 PM) [...] 10.7 mg/dL Specimen Performing Laboratory Plasma specimen [facility] DEPARTMENT PATHOLOGY AND [facility] MEDICINE [address] [place] [address] * T3, free (02/25/2017 1:16 PM) Component Value Ref Range T3, free 1.73 (L) 2.18 - 3.98 pmol/L Specimen Performing Laboratory Plasma specimen [facility] DEPARTMENT PATHOLOGY [facility] MEDICINE [address] [place] [place] [address] * Thyroid stimulating hormone (02/25/2017 1:16 PM) Component Value Ref Range TSH 2.80 0.38 - 4.82 uIU/mL Specimen Performing Laboratory Plasma specimen [facility] PATHOLOGY [place] [address] [place] [address] * T4, free (02/25/2017 1:16 PM) Component Value Ref Range T4, free 1.16 0.70 - 1.61 ng/dL Specimen Performing Laboratory Plasma specimen [facility] PATHOLOGY [place] [address] [place] [address] * Total iron binding capacity (02/25/2017 4:46 AM) Component Value Ref Range Iron level 34 (L) 76 - 198 ug/dL Iron binding capacity 174 (L) 271 - 474 ug/dL % Saturation 19.5 (L) 20.0 - 40.0 % Specimen Performing Laboratory Blood [facility] PATHOLOGY [facility] [address] [place] [address] * Ferritin level (02/25/2017 4:46 AM) Component Value Ref Range Ferritin level 1,382 (H) 18 - 158 ng/mL Specimen Performing Laboratory Serum [facility] PATHOLOGY AND [facility] MEDICINE [address] [place], [place] [address] [place] [address] * Vitamin B12 level (02/25/2017 4:46 AM) Component Value Ref Range Vitamin B12 131 (L) 231 - 931 pg/mL Comment: Significant overlap exists between normal and deficiency states. However, most patients with deficiencies will have Serum B12 <200 pg/mL. Specimen Performing Laboratory Serum [facility] PATHOLOGY [facility] MEDICINE [facility] [address] [address] * Hepatic function panel (02/25/2017 4:46 AM) [...] 37 U/L Specimen Performing Laboratory Plasma specimen [facility] DEPARTMENT OF PATHOLOGY AND GENOMIC MEDICINE [address] [place] [address] * Manual differential (02/23/2017 5:53 AM) Component [...] Anisocytosis slight Polychromasia slight Specimen Performing Laboratory [facility] DEPARTMENT OF PATHOLOGY AND GENOMIC MEDICINE [address] [place] [place] [address] after 04/04/2016 Insurance Payer Benefit Subscriber ID Type Phone Address Plan / Group [facility] MEDICARE AARP xxxxxxxxx [facility] [place]TE [facility] [place] [address]
[2017-04-05 04:00] VITALS: BP 122/61
[2017-04-05] MEDS ORDERED: PROBIOTIC & AC1 EACH PO (04:19)
[2017-04-05] MEDS ORDERED: MIRTAZAPINE15 MG PO (04:19)
[2017-04-05] MEDS ORDERED: ACETAMINOPHEN325 M1 PO (04:19)
[2017-04-05] MEDS ORDERED: MELATONIN3 MG PO (04:19)
[2017-04-05] MEDS ORDERED: TAMSULOSIN HCL0.4 MG (04:19)
[2017-04-05] MEDS ORDERED: SIMETHICONE80 MG PO (04:19)
[2017-04-05 06:32] VITALS: BP 122/61
[2017-04-05] MEDS: INSULIN REGULAR, HUMAN 100 UNIT/1 ML 3ML VIAL SQ SCH ×4 (07:30→21:00)
[2017-04-05 08:00] VITALS: BP 100/63
[2017-04-05] MEDS: FAMOTIDINE 20 MG/2 ML VIAL IV SCH ×2 (09:00→21:00)
[2017-04-05 09:05] LABS: CREATINE KINASE MB 4.3 ng/mL (0-5.0)
[2017-04-05] MEDS ORDERED: SODIUM CHLORIDE 0.9% 250ML 250 ML ONE (09:07)
[2017-04-05 09:18] LABS: BASOPHILS # (AUTO) 0.1 (0.0-0.1); BASOPHILS % 0.7 % (0.0-1.0); EOSINOPHILS # (AUTO) 0.1 (0.0-0.4); EOSINOPHILS % 0.7 % (0.0-6.0); HEMATOCRIT 22.7 % (38.2-49.6); LYMPHOCYTES # (AUTO) 0.6 (1.0-3.2); MEAN CORPUSCULAR HEMOGLOBIN 28.6 pg (28-32); MEAN CORPUSCULAR HGB CONC 32.6 g/dL (31-35); MEAN CORPUSCULAR VOLUME 87.6 fL (81-99); MONOCYTES # (AUTO) 0.8 (0.2-0.8); MONOCYTES % 9.2 % (4.4-11.3); NEUTROPHILS # (AUTO) 6.6 (2.1-6.9); NEUTROPHILS % 80.8 % (38.7-80.0); PLATELET COUNT 377 x10e3/uL (140-360); RED BLOOD COUNT 2.59 x10e6/uL (4.3-5.7); RED CELL DISTRIBUTION WIDTH 14.2 % (11.7-14.4)
[2017-04-05 09:31] LABS: HEMOGLOBIN 7.4 g/dL (14.0-18.0)
[2017-04-05 09:33] LABS: ALANINE AMINOTRANSFERASE 17 IU/L (0-55); ALBUMIN 2.7 g/dL (3.5-5.0); ANION GAP 12.7 mmol/L (8-16); BLOOD UREA NITROGEN 29 mg/dL (7-26); BUN/CREATININE RATIO 23 (6-25); CALCIUM 8.7 mg/dL (8.4-10.2); CARBON DIOXIDE 30 mmol/L (22-29); CHLORIDE 96 mmol/L (98-107); CREATININE, SERUM 1.28 mg/dL (0.72-1.25); EST GLOMERULAR FILTRATION RATE 53 ML/MIN (60-); GLUCOSE 194 mg/dL (74-118); POTASSIUM 4.7 mmol/L (3.5-5.1); SODIUM 134 mmol/L (136-145)
[2017-04-05 09:34] LABS: ALKALINE PHOSPHATASE 111 IU/L (40-150)
[2017-04-05 09:50] LABS: EOSINOPHILS % (MANUAL) 2 % (0-7); LYMPHOCYTES % (MANUAL) 3 % (19-48); MONOCYTES % (MANUAL) 9 % (3.4-9.0); MYELOCYTES % (MANUAL) 1 % (0-0); NEUTROPHILS % (MANUAL) 85 % (40-74); PLATELET ESTIMATE SLIGHTLY INCREASED; PLATELET MORPHOLOGY COMMENT NORMAL; RBC MORPHOLOGY COMMENT NORMAL
[2017-04-05] MEDS ORDERED: SODIUM CHLORIDE 0.9% 250ML 250 ML IV ONE (10:45)
[2017-04-05] MEDS ORDERED: FUROSEMIDE INJ 10 MG/ML 2 ML VIAL IV PRN (10:45)
[2017-04-05 12:00] VITALS: BP 101/64
[2017-04-05 16:00] VITALS: BP_SYST 101; BP_SYST 109; BP_DIAS 59; BP_DIAS 64
[2017-04-05 20:00] VITALS: BP 120/71
[2017-04-05] MEDS: BALSAM PERU/CASTOR OIL 60 GM OINT...G. TP SCH (21:00)
[2017-04-05 21:34] LABS: HEMATOCRIT 25.3 % (38.2-49.6); HEMOGLOBIN 8.3 g/dL (14.0-18.0)
[2017-04-05 21:54] LABS: CREATINE KINASE MB 3.3 ng/mL (0-5.0)
[2017-04-06] VITALS: BP 144/76
[2017-04-06] MEDS: PIPER-TAZ 3.375 GM 50 ML IV SCH ×5 (00:11→23:39)
[2017-04-06 04:00] VITALS: BP 140/73
[2017-04-06 07:01] LABS: BASOPHILS # (AUTO) 0.1 (0.0-0.1); BASOPHILS % 0.6 % (0.0-1.0); EOSINOPHILS % 0.4 % (0.0-6.0); HEMOGLOBIN 8.7 g/dL (14.0-18.0); LYMPHOCYTES # (AUTO) 0.4 (1.0-3.2); LYMPHOCYTES % 5.1 % (18.0-39.1); MEAN CORPUSCULAR HEMOGLOBIN 28.4 pg (28-32); MEAN CORPUSCULAR HGB CONC 32.2 g/dL (31-35); MEAN CORPUSCULAR VOLUME 88.2 fL (81-99); MONOCYTES # (AUTO) 0.6 (0.2-0.8); MONOCYTES % 7.7 % (4.4-11.3); NEUTROPHILS # (AUTO) 6.8 (2.1-6.9); NEUTROPHILS % 85.2 % (38.7-80.0); PLATELET COUNT 370 x10e3/uL (140-360); RED BLOOD COUNT 3.06 x10e6/uL (4.3-5.7); RED CELL DISTRIBUTION WIDTH 15.1 % (11.7-14.4)
[2017-04-06] MEDS: INSULIN REGULAR, HUMAN 100 UNIT/1 ML 3ML VIAL SQ SCH ×4 (07:30→21:45)
[2017-04-06 07:34] LABS: ALANINE AMINOTRANSFERASE 13 IU/L (0-55); ALBUMIN 2.7 g/dL (3.5-5.0); ALBUMIN/GLOBULIN RATIO 0.8 (0.8-2.0); ALKALINE PHOSPHATASE 113 IU/L (40-150); ANION GAP 15.9 mmol/L (8-16); BLOOD UREA NITROGEN 24 mg/dL (7-26); BUN/CREATININE RATIO 23 (6-25); CALCIUM 9.1 mg/dL (8.4-10.2); CARBON DIOXIDE 26 mmol/L (22-29); CHLORIDE 99 mmol/L (98-107); CHOL/HDL RATIO 3.2 (3.9-4.7); CHOLESTEROL 136 MD/DL (0-199); CREATININE, SERUM 1.03 mg/dL (0.72-1.25); EST GLOMERULAR FILTRATION RATE > 60 ML/MIN (60-); GLUCOSE 64 mg/dL (74-118); HDL CHOLESTEROL 43 MG/DL (40-60); LDL CHOLESTEROL 78 MG/DL (60-130); POTASSIUM 3.9 mmol/L (3.5-5.1); SODIUM 137 mmol/L (136-145); TRIGLYCERIDES 75 MG/DL (0-149)
[2017-04-06 07:46] LABS: LYMPHOCYTES % (MANUAL) 7 % (19-48); MONOCYTES % (MANUAL) 4 % (3.4-9.0); NEUTROPHILS % (MANUAL) 89 % (40-74); PLATELET ESTIMATE SLIGHTLY INCREASED; PLATELET MORPHOLOGY COMMENT NORMAL; RBC MORPHOLOGY COMMENT NORMAL
[2017-04-06 08:00] VITALS: BP 135/74
[2017-04-06] MEDS ORDERED: COLLAGENASE OINTMENT 30 GM TUBE TP SCH (09:00)
[2017-04-06] MEDS: FAMOTIDINE 20 MG/2 ML VIAL IV SCH ×2 (09:25→22:10)
[2017-04-06] MEDS: AZITHROMYCIN 500MG/NS 250 ML 250 ML IV SCH (09:25)
[2017-04-06] MEDS: COLLAGENASE 5 GM TUBE TP SCH (09:25)
[2017-04-06] MEDS: BALSAM PERU/CASTOR OIL 60 GM OINT...G. TP SCH ×2 (09:25→23:10)
[2017-04-06 12:00] VITALS: BP 121/65
[2017-04-06] MEDS ORDERED: ACETAMINOPHEN 325 MG TAB PO PRN (12:15)
[2017-04-06] MEDS: ASPIRIN 81 MG CHEW TAB PO SCH (13:08)
[2017-04-06] MEDS: SIMETHICONE 80 MG CHEW PO SCH ×2 (13:08→18:05)
[2017-04-06] MEDS: CLOPIDOGREL BISULFATE 75 MG TAB PO SCH (13:08)
[2017-04-06] MEDS ORDERED: FAMOTIDINE 20 MG TAB PO SCH (14:00)
[2017-04-06 16:00] VITALS: BP 109/73
[2017-04-06] MEDS: MAGNESIUM OXIDE 400 MG TAB PO SCH (18:05)
[2017-04-06 20:00] VITALS: BP 103/59
[2017-04-06] MEDS: SIMVASTATIN 20 MG TAB PO SCH (22:10)
[2017-04-06] MEDS: MIRTAZAPINE 15 MG TAB PO SCH (22:10)
[2017-04-06] MEDS: MELATONIN 3 MG TAB PO SCH (23:50)
[2017-04-07] VITALS (7 sets, daily range): BP systolic 98–136; BP diastolic 56–77
[2017-04-07] MEDS: PIPER-TAZ 3.375 GM 50 ML IV SCH ×4 (05:23→23:29)
[2017-04-07] MEDS: INSULIN REGULAR, HUMAN 100 UNIT/1 ML 3ML VIAL SQ SCH ×4 (07:30→21:00)
[2017-04-07] MEDS ORDERED: FUROSEMIDE 40 MG TAB PO SCH (09:00)
[2017-04-07] MEDS: FAMOTIDINE 20 MG/2 ML VIAL IV SCH ×2 (09:12→21:00)
[2017-04-07] MEDS: ASPIRIN 81 MG CHEW TAB PO SCH (09:12)
[2017-04-07] MEDS: CLOPIDOGREL BISULFATE 75 MG TAB PO SCH (09:12)
[2017-04-07] MEDS: GLIMEPIRIDE 2 MG TAB PO SCH (09:12)
[2017-04-07] MEDS: MAGNESIUM OXIDE 400 MG TAB PO SCH ×2 (09:12→17:26)
[2017-04-07] MEDS: FERROUS SULFATE 325 MG TAB PO SCH (09:12)
[2017-04-07] MEDS: SIMETHICONE 80 MG CHEW PO SCH ×3 (09:12→17:26)
[2017-04-07] MEDS: LACTOBACILLUS ACIDOPHILUS CAPSULE PO SCH (09:12)
[2017-04-07] MEDS: AZITHROMYCIN 500MG/NS 250 ML 250 ML IV SCH (09:12)
[2017-04-07] MEDS: FUROSEMIDE 20 MG TAB PO SCH (09:12)
[2017-04-07] MEDS: TAMSULOSIN HCL 0.4 MG CAP PO SCH (09:12)
[2017-04-07] MEDS: COLLAGENASE 5 GM TUBE TP SCH ×2 (10:14→13:30)
[2017-04-07] MEDS: BALSAM PERU/CASTOR OIL 60 GM OINT...G. TP SCH ×3 (10:14→21:00)
[2017-04-07] MEDS: MELATONIN 3 MG TAB PO SCH (21:00)
[2017-04-07] MEDS: SIMVASTATIN 20 MG TAB PO SCH (21:00)
[2017-04-07] MEDS: MIRTAZAPINE 15 MG TAB PO SCH (21:00)
[2017-04-08 00:48] VITALS: BP 137/61
[2017-04-08] MEDS: PIPER-TAZ 3.375 GM 50 ML IV SCH ×4 (05:15→23:34)
[2017-04-08] MEDS: INSULIN REGULAR, HUMAN 100 UNIT/1 ML 3ML VIAL SQ SCH ×4 (07:30→21:00)
[2017-04-08 08:11] VITALS: BP 151/82
[2017-04-08] MEDS: LACTOBACILLUS ACIDOPHILUS CAPSULE PO SCH (09:22)
[2017-04-08] MEDS: FERROUS SULFATE 325 MG TAB PO SCH (09:22)
[2017-04-08] MEDS: CLOPIDOGREL BISULFATE 75 MG TAB PO SCH (09:22)
[2017-04-08] MEDS: TAMSULOSIN HCL 0.4 MG CAP PO SCH (09:22)
[2017-04-08] MEDS: ASPIRIN 81 MG CHEW TAB PO SCH (09:22)
[2017-04-08] MEDS: MAGNESIUM OXIDE 400 MG TAB PO SCH ×2 (09:22→17:01)
[2017-04-08] MEDS: GLIMEPIRIDE 2 MG TAB PO SCH (09:22)
[2017-04-08] MEDS: AZITHROMYCIN 500MG/NS 250 ML 250 ML IV SCH (09:22)
[2017-04-08] MEDS: COLLAGENASE 5 GM TUBE TP SCH (09:22)
[2017-04-08] MEDS: FUROSEMIDE 20 MG TAB PO SCH (09:22)
[2017-04-08] MEDS: BALSAM PERU/CASTOR OIL 60 GM OINT...G. TP SCH ×2 (09:22→21:13)
[2017-04-08] MEDS: SIMETHICONE 80 MG CHEW PO SCH ×3 (09:22→17:01)
[2017-04-08] MEDS: FAMOTIDINE 20 MG/2 ML VIAL IV SCH ×2 (09:22→21:12)
[2017-04-08 09:36] VITALS: BP 151/82
[2017-04-08 11:32] VITALS: BP 114/78
[2017-04-08] MEDS: SODIUM CHLORIDE 0.9% 1000ML 1,000 ML IV SCH (14:49)
[2017-04-08 16:08] VITALS: BP 101/57
[2017-04-08 20:00] VITALS: BP 98/53
[2017-04-08] MEDS: MIRTAZAPINE 15 MG TAB PO SCH (21:12)
[2017-04-08] MEDS: MELATONIN 3 MG TAB PO SCH (21:12)
[2017-04-08] MEDS: SIMVASTATIN 20 MG TAB PO SCH (21:12)
[2017-04-09] VITALS (7 sets, daily range): BP systolic 116–152; BP diastolic 60–80
[2017-04-09] MEDS: SODIUM CHLORIDE 0.9% 1000ML 1,000 ML IV SCH (05:20)
[2017-04-09] MEDS: PIPER-TAZ 3.375 GM 50 ML IV SCH ×4 (05:20→23:23)
[2017-04-09] MEDS: INSULIN REGULAR, HUMAN 100 UNIT/1 ML 3ML VIAL SQ SCH ×4 (07:30→20:04)
[2017-04-09] MEDS: AZITHROMYCIN 500MG/NS 250 ML 250 ML IV SCH (08:33)
[2017-04-09] MEDS: FAMOTIDINE 20 MG/2 ML VIAL IV SCH ×2 (08:33→20:48)
[2017-04-09] MEDS: ASPIRIN 81 MG CHEW TAB PO SCH (08:34)
[2017-04-09] MEDS: FUROSEMIDE 20 MG TAB PO SCH (08:34)
[2017-04-09] MEDS: LACTOBACILLUS ACIDOPHILUS CAPSULE PO SCH (08:34)
[2017-04-09] MEDS: FERROUS SULFATE 325 MG TAB PO SCH (08:34)
[2017-04-09] MEDS: CLOPIDOGREL BISULFATE 75 MG TAB PO SCH (08:34)
[2017-04-09] MEDS: SIMETHICONE 80 MG CHEW PO SCH ×3 (08:34→17:34)
[2017-04-09] MEDS: TAMSULOSIN HCL 0.4 MG CAP PO SCH (08:34)
[2017-04-09] MEDS: GLIMEPIRIDE 2 MG TAB PO SCH (08:34)
[2017-04-09] MEDS: MAGNESIUM OXIDE 400 MG TAB PO SCH ×2 (08:34→17:34)
[2017-04-09 09:22] LABS: ANION GAP 15.9 mmol/L (8-16); BLOOD UREA NITROGEN 20 mg/dL (7-26); BUN/CREATININE RATIO 20 (6-25); CALCIUM 9.6 mg/dL (8.4-10.2); CARBON DIOXIDE 28 mmol/L (22-29); CHLORIDE 102 mmol/L (98-107); EST GLOMERULAR FILTRATION RATE > 60 ML/MIN (60-); POTASSIUM 3.9 mmol/L (3.5-5.1); SODIUM 142 mmol/L (136-145)
[2017-04-09 09:27] LABS: GLUCOSE 54 mg/dL (74-118)
[2017-04-09] MEDS: COLLAGENASE 5 GM TUBE TP SCH (09:30)
[2017-04-09] MEDS: BALSAM PERU/CASTOR OIL 60 GM OINT...G. TP SCH ×2 (09:30→20:17)
[2017-04-09] MEDS: SIMVASTATIN 20 MG TAB PO SCH (20:48)
[2017-04-09] MEDS: MELATONIN 3 MG TAB PO SCH (20:48)
[2017-04-09] MEDS: MIRTAZAPINE 15 MG TAB PO SCH (20:48)
[2017-04-10] VITALS: BP 134/70
[2017-04-10 04:00] VITALS: BP 140/72
[2017-04-10] MEDS: PIPER-TAZ 3.375 GM 50 ML IV SCH ×2 (05:35→12:05)
[2017-04-10] MEDS: INSULIN REGULAR, HUMAN 100 UNIT/1 ML 3ML VIAL SQ SCH ×2 (07:30→11:30)
[2017-04-10 08:00] VITALS: BP 135/78
[2017-04-10] MEDS: FAMOTIDINE 20 MG/2 ML VIAL IV SCH (08:49)
[2017-04-10] MEDS: MAGNESIUM OXIDE 400 MG TAB PO SCH (08:49)
[2017-04-10] MEDS: CLOPIDOGREL BISULFATE 75 MG TAB PO SCH (08:49)
[2017-04-10] MEDS: GLIMEPIRIDE 2 MG TAB PO SCH (08:49)
[2017-04-10] MEDS: FERROUS SULFATE 325 MG TAB PO SCH (08:49)
[2017-04-10] MEDS: TAMSULOSIN HCL 0.4 MG CAP PO SCH (08:49)
[2017-04-10] MEDS: ASPIRIN 81 MG CHEW TAB PO SCH (08:49)
[2017-04-10] MEDS: FUROSEMIDE 20 MG TAB PO SCH (08:49)
[2017-04-10] MEDS: LACTOBACILLUS ACIDOPHILUS CAPSULE PO SCH (08:49)
[2017-04-10] MEDS: AZITHROMYCIN 500MG/NS 250 ML 250 ML IV SCH (08:49)
[2017-04-10] MEDS: SIMETHICONE 80 MG CHEW PO SCH ×2 (08:49→12:05)
[2017-04-10] MEDS: BALSAM PERU/CASTOR OIL 60 GM OINT...G. TP SCH (10:48)
[2017-04-10] MEDS: COLLAGENASE 5 GM TUBE TP SCH (10:48)
[2017-04-10 12:00] VITALS: BP 152/79
[2017-04-10] MEDS ORDERED: CIPROFLOXACIN 500 MG TAB PO SCH (14:30)
[2017-04-10] MEDS ORDERED: CIPRO500 MG PO (15:02)
[2017-04-10] MEDS ORDERED: FAMOTIDINE 20 MG TAB PO SCH (16:30)
[2017-04-11] MEDS ORDERED: GLIMEPIRIDE 2 MG TAB PO SCH (08:00)
--- NOTE | 2017-04-26 20:03 | Discharge Summary ---
CHIEF COMPLAINT: Congestive heart failure, chronic kidney disease, hyperkalemia, pleural effusion, pneumonia. FINAL DIAGNOSES: 1. Urinary tract infection. 2. Coronary artery disease. 3. Chronic congestive heart failure. 4. Uncontrolled diabetes type 2. 5. Early dementia. PROCEDURES: Transfusion packed cells. DISPOSITION: Home with [facility]. An 87-year-old male, known history of diabetes type 2, coronary artery disease, hypertension, chronic kidney disease, chronic back pain, early dementia, brought to the ER with a several-day history of altered mental status and hallucinations. Was monitored and evaluated in the emergency room. Studies were performed, blood work, x-rays. Patient was found to have a UTI, was noted to be lethargic. The patient admitted for evaluation regarding altered mental status, sepsis/UTI, chronic back pain, coronary artery disease, diabetes type 2, dementia. Will be obtaining urine and blood cultures, will begin IV antibiotics. Will initiate palliative care. Will be discussing condition with family. Was admitted to the med surg floor, and he was beginning to look more alert, more responsive, was receiving Zosyn 3.375 IV q.6 along with azithromycin 250 IV daily. Insulin management was being conducted t.i.d. a.c. nightly. Daily medications were continuing. Laboratory studies were showing stable electrolytes. Kidney functions: BUN 24, creatinine 1.03, glucose 64. CBC: Hemoglobin of 8.7, white cell count 8000. Urine was showing evidence of E. coli. Patient was continuing to be maintained on an ADA diet. Continued on his medications. Was having issues of being confused off and on. Followup BUN 20, creatinine 1.00, glucose 54. CBC continued to reveal a hemoglobin in the mid 8's. Continued to show evidence of being alert and responsive. With discussions with the family, hospice was called in, [facility]. Family elected to go with this service, and the patient was cleared for discharge and was released home on April 10, 2017, with hospice coverage. With discharge, the patient will continue on an 1800 calorie ADA diet. No equipment or supplies were necessary. No drains or Foleys were needed. Activity level as tolerated. He will continue on acetaminophen 325 every 6 hours. Aspirin 81 mg daily. Cipro 500 mg every 12 p.o. Plavix 75 mg daily. Famotidine 20 mg daily. Ferrous sulfate 325 daily. Furosemide 20 mg daily. Glimepiride 4 mg daily. Probiotic acidophilous capsule 1 tablet daily. Magnesium oxide 400 mg twice a day. Melatonin 9 mg at bedtime. Mirtazapine 15 mg at bedtime. Simethicone 125 mg after meals. Zocor 20 mg at bedtime. Tamsulosin 0.4 mg daily. As mentioned, the patient will be on the [facility]. They will be contacting his PCP, Dr. Temple, as needed. Dictated By: JAQUELINE Figueroa Job#: [id number]
== END 2017-04-10 15:22 | disposition hospice, home (50) | DRG 871 ==
LOC: ER 16:02 → MED/SURG3 04-05 02:14
PROC: 30233N1 Transfusion of Nonautologous Red Blood Cells into Peripheral Vein, Percutaneous Approach (ICD-10-PCS; principal; 2017-04-05)
DX: A41.9 Sepsis, unspecified organism (principal); G93.40 Encephalopathy, unspecified; E11.22 Type 2 diabetes mellitus with diabetic chronic kidney disease; G82.20 Paraplegia, unspecified; E44.1 Mild protein-calorie malnutrition; I13.0 Hypertensive heart and chronic kidney disease with heart failure and stage 1 through stage 4 chronic kidney disease, or unspecified chronic kidney disease; I50.1 Left ventricular failure, unspecified; N39.0 Urinary tract infection, site not specified; F03.90 Unspecified dementia, unspecified severity, without behavioral disturbance, psychotic disturbance, mood disturbance, and anxiety; I25.10 Atherosclerotic heart disease of native coronary artery without angina pectoris; Z95.1 Presence of aortocoronary bypass graft; N18.9 Chronic kidney disease, unspecified; Z66 Do not resuscitate; D63.8 Anemia in other chronic diseases classified elsewhere; G89.29 Other chronic pain; M54.5 Low back pain; Z68.21 Body mass index [BMI] 21.0-21.9, adult
CPT/HCPCS: 36415; 36430; 70450; 71045; 80048; 80053; 80061; 81001; 82550; 82553; 82948; 83605; 83735; 84484; 85014; 85018; 85025; 85610; 85730; 86850; 86900; 86920; 87040; 87086; 87186; 87400; 99284; J0456; J1940; J2543; J7030; J7050; P9016